=== PATIENT | male | born 1950 | race Caucasian/White ===

== ENCOUNTER 2020-09-25 06:36 | Outpatient (REF) | payer MEDICARE, MEDICAID, SELFPAY ==
[2020-09-25 08:16] LABS: Alanine Aminotransferase 23 U/L (0-40); Albumin Level 4.3 g/dL (3.5-5.0); Alkaline Phosphatase 100 U/L (39-117); Anion Gap 14 (12-20); Aspartate Amino Transferase 20 U/L (5-37); Bilirubin Direct 0.4 mg/dL (0.0-0.5); Blood Urea Nitrogen 13 mg/dL (9-16); Calcium 9.2 mg/dL (8.4-10.2); Carbon Dioxide 24 mmol/L (22-29); Chloride 103 mmol/L (96-108); Cholesterol 173 mg/dL; Estimated Glomerular Filt Rate > 60; Glucose Fasting 95 mg/dL (60-99); HDL Cholesterol 48 mg/dL; LDL Cholesterol Calculated 100 mg/dl; Potassium 4.3 mmol/l (3.3-5.1); Sodium 137 mmol/L (135-145); Total Protein 6.9 g/dL (6.5-8.0); Triglycerides 126 mg/dL
== END 2020-09-25 06:37 | disposition home or self-care (01) ==
LOC: HO.LAB 06:36
PROVIDERS: Visit Provider Student in an Organized Health Care Education/Training Program
DX: E78.01 Familial hypercholesterolemia (principal)
CPT/HCPCS: 80048; 80061; 80076

== ENCOUNTER 2021-07-24 21:21 | Emergency (ER) | payer MEDICARE, MEDICAID, SELFPAY ==
[2021-07-24 22:17] VITALS: BP 134/67; PULSE 65; RESP 18; TEMP 36.7; O2SAT 94; BMI 32.1
[2021-07-24 22:42] VITALS: BP 155/65; PULSE 64; RESP 16; TEMP 36.5; O2SAT 97
--- NOTE | 2021-07-24 23:11 | ED.LOWEXIN ---
HPI - Extremity Injury (Lower) General Chief Complaint: Extremity Injury, Lower Stated Complaint: toe lac Time Seen by Provider: 07/24/21 23:06 Source: patient Mode of arrival: ambulatory History of Present Illness HPI Narrative: 71-year-old male who presents after clipping his toenails and accidentally catching the skin tip of right 3rd toe and states he had some difficulty stopping the bleeding. He denies any blood thinner use and has unknown tetanus vaccine. Related Data Allergies Allergy/AdvReac Type Severity Reaction Status Date / Time No Known Allergies Allergy Unverified 07/27/20 15:07 Review of Systems Review of Systems: Pertinent positives and negatives as stated in HPI 10 point review of systems is otherwise negative. PMFSH Past Medical History Source: nursing notes reviewed Medical History Depression High cholesterol Hypertension No known health problems Social History Social History Advance Directives: No Physical Exam Vital Signs: Vital Signs: Last Vital Signs Temp 97.7 F 07/24/21 22:42 Pulse 64 07/24/21 22:42 Resp 16 07/24/21 22:42 BP 155/65 H 07/24/21 22:42 Pulse Ox 97 07/24/21 22:42 Body Mass Index 32.1 VITAL SIGNS: Reviewed. GENERAL: Well developed, well nourished, in no acute distress. HEAD: Normocephalic/atraumatic EYES: PERRLA, EOMI LUNGS: Normal breath sounds. No adventitious sounds or accessory muscle use. SpO2<97> CARDIOVASCULAR: Regular rate and rhythm without noted murmurs ABDOMEN: Soft, non-tender, non-distended with bowel sounds. RIGHT 3RD TOE: Small avulsed area at the tip that is currently hemostatic NEUROLOGIC: Alert and oriented x 4. Course Course Course Narrative: 71-year-old male with history and clinical presentation consistent with toe clipper related avulsion laceration to the tip of the right 3rd toe. It is currently hemostatic, patient will receive Tdap, and will apply bacitracin and Band-Aid. Discharge Plan Discharge Clinical Impression: Laceration of toe Patient Disposition: Home, Self-Care Instructions: Laceration (ED), Laceration Without Closure (ED) Additional Instructions: 1. May cleanse her toe with soap and water and gently blot dry. May apply small amount of antibiotic ointment with Band-Aid. 2. If you toe should start to bleed simply apply direct pressure and elevate your foot. 3. Follow-up with your primary care provider for re-evaluation in the next 2-3 days. Return to the ER for acute worsening of symptoms. Referrals: Rocio Marie MD [Primary Care Provider] - 2 days
[2021-07-24] MEDS: Diphth,Pertus(ACell),Tet Adult 0.5 ML SYRINGE IM (23:52)
== END 2021-07-25 00:34 | disposition home or self-care (01) ==
LOC: HO.ED 23:18
PROVIDERS: Emergency Provider Student in an Organized Health Care Education/Training Program; PCP Student in an Organized Health Care Education/Training Program
DX: S91.114A Laceration without foreign body of right lesser toe(s) without damage to nail, initial encounter (principal); M79.672 Pain in left foot; W26.9XXA Contact with unspecified sharp object(s), initial encounter; Y93.9 Activity, unspecified; Y92.9 Unspecified place or not applicable; Y99.9 Unspecified external cause status
CPT/HCPCS: 90471; 90715; 99284

== ENCOUNTER 2022-03-07 08:18 | Outpatient (REF) | payer MEDICARE, MEDICAID, SELFPAY ==
--- NOTE | ~2022-03-07 | US_ITS ---
EXAMINATION: US RETROPERITONEAL LIMITED (RENAL ONLY) CLINICAL INFORMATION: Chronic kidney disease. COMPARISON: None TECHNIQUE: Real-time imaging of the kidneys. FINDINGS: RIGHT KIDNEY: 11.0 x 4.2 x 5.8 cm (SAG x AP x TRV). The kidney is normal in size, contour, and echogenicity. Renal cortical thickness is normal. No calculi or focal parenchymal lesions. No hydronephrosis. LEFT KIDNEY: 9.9 x 4.6 x 5.4 cm (SAG x AP x TRV). The kidney is normal in size, contour, and echogenicity. Renal cortical thickness is normal. No calculi or focal parenchymal lesions. No hydronephrosis. US/US renal BI IMPRESSION: Unremarkable renal ultrasound.
[2022-03-07 11:39] LABS: Hematocrit 43.5 % (42.0-52.0); Hemoglobin 14.5 g/dl (14.0-18.0); Mean Corpuscular HGB Conc 33.3 g/dl (31.0-36.0); Mean Corpuscular Hemoglobin 28.7 pg (27.0-33.0); Platelet Count 267 X10*3/uL (160-400); Red Blood Count 5.06 X10*6/uL (4.60-5.80); Red Cell Distribution Width 13.6 % (11.0-16.0); White Blood Count 6.6 X10*3/uL (4.8-10.8)
[2022-03-07 11:48] LABS: Albumin Level 4.3 g/dL (3.5-5.0); Anion Gap 13 (12-20); Blood Urea Nitrogen 12 mg/dL (9-16); Calcium 10.1 mg/dL (8.4-10.2); Carbon Dioxide 26 mmol/L (22-29); Chloride 103 mmol/L (96-108); Estimated Glomerular Filt Rate > 60; Magnesium 2.1 mg/dL (1.6-2.6); Potassium 4.7 mmol/L (3.3-5.1); Sodium 137 mmol/L (135-145)
[2022-03-07 12:04] LABS: Vitamin D 25-OH Total 8.5 ng/mL (>30)
[2022-03-07 12:30] LABS: Appearance Urine CLEAR; Color Urine YELLOW; Glucose Urine UA NEG (NEG); Leukocyte Esterase Urine NEG (NEG); Nitrite Urine NEG (NEG); PH 7.5 (5.0-8.0); Specific Gravity - Urine 1.015 (1.005-1.025); Urine Blood NEG (NEG); Urine Ketones NEG (NEG); Urine Protein NEG (NEG-TRACE)
[2022-03-07 12:31] LABS: HBS Num1 0.59 mIU/mL (0-7.99); HBc Num1 0.09 S/CO (0.00-0.79); HBsAGNum1 0.21 S/CO (0.00-0.99); Hepatitis B Core Antibody Nonreactive (Nonreactive); Hepatitis B Surface Antigen Negative (Negative); ~Hepatitis B Surface Antibody NONREACTIVE (Nonreactive); ~Hepatitis C Antibody Nonreactive (Nonreactive)
[2022-03-07 12:40] LABS: Creatinine Urine 121.28 mg/dL; Microalbumin Urine < 5.0 mg/L; Total Protein Urine Random < 7 mg/dL (<12)
[2022-03-08 13:02] LABS: PTHI 42 pg/mL (16-77)
[2022-03-08 17:46] LABS: Complement C3 141 mg/dL (82-185)
[2022-03-09 14:42] LABS: Anti Nuclear Antibody Screen NEGATIVE (NEGATIVE)
[2022-03-11 22:13] LABS: Kappa Light Chain, Free Serum 21.4 mg/L (3.3-19.4); Kappa/Lambda Lt Ch Free Ratio 1.18 (0.26-1.65); Lambda Light Chain, Free Serum 18.2 mg/L (5.7-26.3)
[2022-03-12 11:51] LABS: Prot Elec - Albumin 4.2 g/dL (3.8-4.8); Prot Elec - Alpha1 0.4 g/dL (0.2-0.3); Prot Elec - Beta 1 0.5 g/dL (0.4-0.6); Prot Elec - Beta 2 0.4 g/dL (0.2-0.5); Prot Elec - Gamma 0.8 g/dL (0.8-1.7); Prot Elec - Total Protein 7.2 g/dL (6.1-8.1)
== END 2022-03-07 08:19 | disposition home or self-care (01) ==
LOC: HO.HMGCX 08:18
PROVIDERS: Absent Provider Internal Medicine Nephrology; Visit Provider Internal Medicine Nephrology
DX: I12.9 Hypertensive chronic kidney disease with stage 1 through stage 4 chronic kidney disease, or unspecified chronic kidney disease (principal); N18.31 Chronic kidney disease, stage 3a; N25.0 Renal osteodystrophy
CPT/HCPCS: 36415; 76775; 80051; 81003; 82040; 82043; 82306; 82310; 82565; 83521; 83735; 83970; 84100; 84156; 84165; 84520; 85027; 86038; 86039; 86160; 86704; 86706; 86803; 87086; 87340

== ENCOUNTER 2022-06-26 06:10 | Outpatient (REF) | payer MEDICARE, MEDICAID, SELFPAY ==
[2022-06-26 12:14] LABS: Vitamin D 25-OH Total 18.9 ng/mL (>30)
[2022-06-26 12:23] LABS: Alanine Aminotransferase 18 U/L (0-40); Albumin Level 4.2 g/dL (3.5-5.0); Alkaline Phosphatase 108 U/L (39-117); Anion Gap 14 (12-20); Aspartate Amino Transferase 16 U/L (5-37); Bilirubin Direct 0.4 mg/dL (0.0-0.5); Bilirubin Total 0.8 mg/dL (0.0-1.0); Blood Urea Nitrogen 10 mg/dL (9-16); Calcium 9.5 mg/dL (8.4-10.2); Carbon Dioxide 23 mmol/L (22-29); Chloride 105 mmol/L (96-108); Cholesterol 165 mg/dL; Estimated Glomerular Filt Rate > 60; Glucose Random 100 mg/dL (60-115); HDL Cholesterol 49 mg/dL; LDL Cholesterol Calculated 95 mg/dl; Potassium 4.3 mmol/L (3.3-5.1); Sodium 138 mmol/L (135-145); Triglycerides 108 mg/dL
== END 2022-06-26 06:11 | disposition home or self-care (01) ==
LOC: HO.HMGCLDS 06:10
PROVIDERS: PCP Student in an Organized Health Care Education/Training Program; Visit Provider Student in an Organized Health Care Education/Training Program
DX: E78.01 Familial hypercholesterolemia (principal); I10 Essential (primary) hypertension
CPT/HCPCS: 36415; 80048; 80061; 80076; 82306

== ENCOUNTER 2023-04-08 06:06 | Outpatient (REF) | payer MEDICARE, MEDICAID, SELFPAY ==
[2023-04-08 11:17] LABS: Appearance Urine Clear; Color Urine Yellow; Glucose Urine UA Negative (Negative); Leukocyte Esterase Urine Negative (Negative); Nitrite Urine Negative (Negative); Urine Blood Negative (Negative); Urine Ketones Negative (Negative); Urine Protein Negative (Neg-Trace)
[2023-04-08 11:21] LABS: Bacteria Urine None Seen (None Seen); Hyaline Casts Urine 0-2 /LPF (0-2); RBC Urine 0-2 /HPF (0-2); Squamous Epithelial Cell Urine 0-2 /HPF (0-2); WBC Urine 0-5 /HPF (0-5)
[2023-04-08 12:01] LABS: Creatinine Urine 93.08 mg/dL; Microalbumin Urine < 5.0 mg/L; Total Protein Urine Random < 7 mg/dL (<12)
[2023-04-08 12:08] LABS: Anion Gap 12 (12-20); Blood Urea Nitrogen 10 mg/dL (9-16); Carbon Dioxide 26 mmol/L (22-29); Chloride 104 mmol/L (96-108); Estimated Glomerular Filt Rate 55; Potassium 4.4 mmol/L (3.3-5.1); Sodium 138 mmol/L (135-145)
== END 2023-04-08 06:07 | disposition home or self-care (01) ==
LOC: HO.HMGCLDS 06:06
PROVIDERS: PCP Student in an Organized Health Care Education/Training Program; Visit Provider Internal Medicine Nephrology
DX: I12.9 Hypertensive chronic kidney disease with stage 1 through stage 4 chronic kidney disease, or unspecified chronic kidney disease (principal); N18.9 Chronic kidney disease, unspecified
CPT/HCPCS: 36415; 80051; 81001; 82043; 82310; 82565; 84156; 84520

== ENCOUNTER 2024-04-21 06:09 | Outpatient (REF) | payer MEDICARE, MEDICAID, SELFPAY ==
[2024-04-21 10:17] LABS: Appearance Urine Clear; Color Urine Yellow; Glucose Urine UA Negative (Negative); Leukocyte Esterase Urine Negative (Negative); Nitrite Urine Negative (Negative); PH 7.5 (5.0-9.0); Urine Blood Negative (Negative); Urine Ketones Negative (Negative); Urine Protein Negative (Neg-Trace)
[2024-04-21 10:24] LABS: MANUAL DIFF FLAG NO
[2024-04-21 10:41] LABS: Basophils Absolute Auto 0.1 X10*3/uL (0.0-0.2); Basophils Percent Auto 1.6 % (0-2); Eosinophils Absolute Auto 0.3 X10*3/uL (0.0-0.4); Eosinophils Percent Auto 4.2 % (0-4); Hematocrit 42.6 % (42.0-52.0); Hemoglobin 14.4 g/dl (14.0-18.0); Imm Gran Abs Auto 0.02 X10*3/uL (0.00-0.03); Imm Gran Pct Auto 0.3 % (0.0-0.4); Lymphocytes Absolute Auto 1.6 X10*3/uL (1.2-4.9); Lymphocytes Percent Auto 23.9 % (20-40); Mean Corpuscular HGB Conc 33.8 g/dl (31.0-36.0); Mean Corpuscular Hemoglobin 29.7 pg (27.0-33.0); Mean Corpuscular Volume 87.8 fL (80.0-98.0); Mean Platelet Volume 9.3 fL (9.4-12.4); Monocytes Absolute Auto 0.6 X10*3/uL (0.1-1.2); Monocytes Percent Auto 8.5 % (2-11); Neutrophils Absolute Auto 4.1 x10*3/uL (2.0-8.3); Neutrophils Percent Auto 61.5 % (45-73); Platelet Count 267 X10*3/uL (160-400); Red Blood Count 4.85 X10*6/uL (4.60-5.80); Red Cell Distribution Width 13.7 % (11.0-16.0); White Blood Count 6.7 X10*3/uL (4.8-10.8)
[2024-04-21 10:59] LABS: Albumin Level 4.3 g/dL (3.5-5.0); Anion Gap 10 (12-20); Blood Urea Nitrogen 13 mg/dL (9-16); Calcium 9.9 mg/dL (8.4-10.2); Carbon Dioxide 26 mmol/L (22-29); Chloride 105 mmol/L (96-108); Estimated Glomerular Filt Rate > 60; Magnesium 2.1 mg/dL (1.6-2.6); Parathyroid Hormone Intact 46.2 pg/mL (8.7-77.1); Potassium 4.2 mmol/L (3.3-5.1); Sodium 137 mmol/L (135-145)
[2024-04-21 11:03] LABS: Creatinine Urine 70.44 mg/dL; Microalbumin Urine < 5.0 mg/L; Total Protein Urine Random < 7 mg/dL (<12)
[2024-04-21 11:22] LABS: Vitamin D 25-OH Total 23.5 ng/mL (>30)
== END 2024-04-21 06:10 | disposition home or self-care (01) ==
LOC: HO.HMGCLDS 06:09
PROVIDERS: PCP Student in an Organized Health Care Education/Training Program; Visit Provider Internal Medicine Nephrology
DX: N25.0 Renal osteodystrophy (principal); I12.9 Hypertensive chronic kidney disease with stage 1 through stage 4 chronic kidney disease, or unspecified chronic kidney disease; N18.31 Chronic kidney disease, stage 3a
CPT/HCPCS: 36415; 80051; 81003; 82040; 82043; 82306; 82310; 82565; 82570; 83735; 83970; 84100; 84156; 84520; 85025; 87086

== ENCOUNTER 2024-06-14 06:12 | Outpatient (REF) | payer MEDICARE, MEDICAID, SELFPAY ==
[2024-06-14 10:41] LABS: Alanine Aminotransferase 17 U/L (0-40); Albumin Level 4.2 g/dL (3.5-5.0); Alkaline Phosphatase 88 U/L (39-117); Anion Gap 12 (12-20); Aspartate Amino Transferase 17 U/L (5-37); Bilirubin Direct 0.3 mg/dL (0.0-0.5); Bilirubin Total 0.9 mg/dL (0.0-1.0); Blood Urea Nitrogen 13 mg/dL (9-16); Carbon Dioxide 24 mmol/L (22-29); Chloride 106 mmol/L (96-108); Cholesterol 162 mg/dL (<200); Estimated Glomerular Filt Rate > 60; Glucose Random 98 mg/dL (60-115); HDL Cholesterol 49 mg/dL (>40); LDL Cholesterol Calculated 88 mg/dL (<100); Potassium 4.3 mmol/L (3.3-5.1); Sodium 138 mmol/L (135-145); Total Protein 7.2 g/dL (6.5-8.0); Triglycerides 129 mg/dL (<150)
== END 2024-06-14 06:13 | disposition home or self-care (01) ==
LOC: HO.HMGCLDS 06:12
PROVIDERS: PCP Student in an Organized Health Care Education/Training Program; Visit Provider Student in an Organized Health Care Education/Training Program
DX: E78.2 Mixed hyperlipidemia (principal); I10 Essential (primary) hypertension
CPT/HCPCS: 36415; 80048; 80061; 80076

== ENCOUNTER 2024-07-29 06:36 | Emergency (ER) | payer MEDICARE, MEDICAID, SELFPAY ==
[2024-07-29 06:48] VITALS: BP 122/59; PULSE 72; RESP 19; TEMP 36.9; O2SAT 97
[2024-07-29 06:56] VITALS: BP 140/80; PULSE 70; O2SAT 98; BMI 33.0
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
[2024-07-29 07:52] LABS: MANUAL DIFF FLAG NO
[2024-07-29 07:55] LABS: Appearance Urine Clear; Color Urine Yellow; Glucose Urine UA Negative (Negative); Leukocyte Esterase Urine Negative (Negative); Nitrite Urine Negative (Negative); Urine Blood Negative (Negative); Urine Ketones Negative (Negative); Urine Protein Negative (Neg-Trace)
[2024-07-29 07:56] LABS: Basophils Absolute Auto 0.1 X10*3/uL (0.0-0.2); Basophils Percent Auto 1.3 % (0-2); Eosinophils Absolute Auto 0.1 X10*3/uL (0.0-0.4); Hematocrit 42.1 % (42.0-52.0); Hemoglobin 14.4 g/dl (14.0-18.0); Imm Gran Abs Auto 0.03 X10*3/uL (0.00-0.03); Imm Gran Pct Auto 0.4 % (0.0-0.4); Mean Corpuscular HGB Conc 34.2 g/dl (31.0-36.0); Mean Corpuscular Hemoglobin 30.3 pg (27.0-33.0); Mean Corpuscular Volume 88.4 fL (80.0-98.0); Mean Platelet Volume 8.6 fL (9.4-12.4); Monocytes Absolute Auto 0.4 X10*3/uL (0.1-1.2); Monocytes Percent Auto 6.3 % (2-11); Neutrophils Absolute Auto 5.2 x10*3/uL (2.0-8.3); Platelet Count 296 X10*3/uL (160-400); Red Blood Count 4.76 X10*6/uL (4.60-5.80); Red Cell Distribution Width 13.5 % (11.0-16.0); White Blood Count 6.8 X10*3/uL (4.8-10.8)
[2024-07-29 08:00] VITALS: BP 119/60; PULSE 70; RESP 16; TEMP 36.5; O2SAT 98
[2024-07-29 08:04] LABS: Amphetamine Screen Urine Not Detected (Not Detect); Barbiturates, Urine Not Detected (Not Detect); Benzodiazepines Screen Urine Not Detected (Not Detect); Buprenorphine Scr Not Detected (Not Detect); Cannabinoid Screen Urine Not Detected (Not Detect); Cocaine Screen Urine Not Detected (Not Detect); Fentanyl, urine Not Detected (Not Detect); Methadone Screen, Urine Not Detected (Not Detect); Opiate Screen Urine Not Detected (Not Detect); Oxycodone Screen Urine Not Detected (Not Detect); Phencyclidine Screen Urine Not Detected (Not Detect)
[2024-07-29 08:18] LABS: Alanine Aminotransferase 19 U/L (0-40); Albumin Level 4.3 g/dL (3.5-5.0); Alkaline Phosphatase 99 U/L (39-117); Anion Gap 12 (12-20); Aspartate Amino Transferase 17 U/L (5-37); Bilirubin Direct 0.3 mg/dL (0.0-0.5); Blood Urea Nitrogen 9 mg/dL (9-16); Calcium 9.6 mg/dL (8.4-10.2); Carbon Dioxide 27 mmol/L (22-29); Chloride 107 mmol/L (96-108); Creatinine Clr Calc Pharmacy 81.5; Estimated Glomerular Filt Rate > 60; Ethanol < 10 mg/dL; Glucose Random 105 mg/dL (60-115); Magnesium 2.1 mg/dL (1.6-2.6); Potassium 3.9 mmol/L (3.3-5.1); Sodium 142 mmol/L (135-145); Total Protein 7.2 g/dL (6.5-8.0)
[2024-07-29 08:28] LABS: TSH reflex Free T4 1.36 uIU/mL (0.32-4.0)
--- NOTE | 2024-07-29 08:42 | PC.NURSE ---
Has been resting queitly. No current panick attack but describes episodes of such at home. Has life stress and a trigger recently. Is on clonazepam but wants additional medication. Awaits Care Team.
[2024-07-29 11:16] VITALS: BP 119/60; PULSE 70; RESP 16; TEMP 36.5; O2SAT 98
== END 2024-07-29 11:17 | disposition home or self-care (01) ==
PROVIDERS: Emergency Provider Emergency Medicine; PCP Student in an Organized Health Care Education/Training Program
DX: F41.9 Anxiety disorder, unspecified (principal); I10 Essential (primary) hypertension; E78.5 Hyperlipidemia, unspecified; Z79.899 Other long term (current) drug therapy
CPT/HCPCS: 36415; 80048; 80076; 80307; 81003; 83735; 84443; 85025; 99284

== ENCOUNTER 2025-04-18 06:09 | Outpatient (REF) | payer MEDICARE, MEDICAID, SELFPAY ==
[2025-04-18 10:48] LABS: Alanine Aminotransferase 14 U/L (0-40); Albumin Level 4.4 g/dL (3.5-5.0); Alkaline Phosphatase 110 U/L (39-117); Anion Gap 10 (12-20); Aspartate Amino Transferase 23 U/L (5-37); Bilirubin Direct 0.3 mg/dL (0.0-0.5); Blood Urea Nitrogen 13 mg/dL (9-16); Calcium 9.3 mg/dL (8.4-10.2); Carbon Dioxide 27 mmol/L (22-29); Chloride 105 mmol/L (96-108); Cholesterol 166 mg/dL (<200); Estimated Glomerular Filt Rate 60; Glucose Random 109 mg/dL (60-115); HDL Cholesterol 51 mg/dL (>40); LDL Cholesterol Calculated 87 mg/dL (<100); Sodium 138 mmol/L (135-145); Total Protein 7.1 g/dL (6.5-8.0); Triglycerides 141 mg/dL (<150)
== END 2025-04-18 06:10 | disposition home or self-care (01) ==
LOC: HO.HMGCLDS 06:09
PROVIDERS: PCP Student in an Organized Health Care Education/Training Program; Visit Provider Student in an Organized Health Care Education/Training Program
DX: I10 Essential (primary) hypertension (principal)
CPT/HCPCS: 36415; 80048; 80061; 80076

== ENCOUNTER 2025-05-19 06:13 | Outpatient (REF) | payer MEDICARE, MEDICAID, SELFPAY ==
[2025-05-19 10:49] LABS: Anion Gap 12 (12-20); Blood Urea Nitrogen 15 mg/dL (9-16); Calcium 9.4 mg/dL (8.4-10.2); Carbon Dioxide 24 mmol/L (22-29); Chloride 104 mmol/L (96-108); Estimated Glomerular Filt Rate 55; Potassium 4.6 mmol/L (3.3-5.1); Sodium 135 mmol/L (135-145)
[2025-05-19 11:43] LABS: Total Protein Urine Random < 7 mg/dL (<12)
[2025-05-19 11:53] LABS: Appearance Urine Clear; Glucose Urine UA Negative (Negative); PH 7.5 (5.0-9.0); Specific Gravity - Urine 1.015 (1.005-1.025)
== END 2025-05-19 06:14 | disposition home or self-care (01) ==
LOC: HO.HMGCLDS 06:13
PROVIDERS: PCP Student in an Organized Health Care Education/Training Program; Visit Provider Internal Medicine Nephrology
DX: I12.9 Hypertensive chronic kidney disease with stage 1 through stage 4 chronic kidney disease, or unspecified chronic kidney disease (principal); N18.2 Chronic kidney disease, stage 2 (mild)
CPT/HCPCS: 36415; 80051; 81001; 82043; 82310; 82565; 82570; 84156; 84520

== ENCOUNTER 2025-08-01 23:11 | Emergency (ER) | payer MEDICARE, MEDICAID, SELFPAY ==
[2025-08-01 23:14] VITALS: BP 129/56; PULSE 75; RESP 16; TEMP 36.5; O2SAT 95; BMI 34.4
--- NOTE | 2025-08-02 01:31 | ED_ITS ---
HPI - General Adult General Chief complaint: Skin/Abscess/Foreign Body Stated complaint: back, bilateral leg and arm rash Time Seen by Provider: 08/02/25 01:05 Source: patient, RN notes reviewed and old records reviewed Mode of arrival: ambulatory Limitations: no limitations History of Present Illness ED Provider: Isaiah HPI narrative: 75-year-old male presents for evaluation of a rash. The rash is worse on his bilateral upper thighs but he also has the rash on his arms and back. The rash is very itchy, not painful. He reports that he woke up with a about 1 week ago Denies any new soaps, lotions, detergents medications. Denies any fevers or chills No other complaints or concerns at this time Related Data Previous Rx's ?Medication ?Instructions ?Recorded mirtazapine 15 mg tablet (Remeron) 15 mg PO BEDTIME #7 tabs 07/29/24 hydrocortisone 2.5 % topical cream 1 appl topical BID #28 grams 08/02/25 prednisone 20 mg tablet 40 mg (2 x 20 mg) PO DAILY # 10 tabs 08/02/25 Allergies Allergy/AdvReac Type Severity Reaction Status Date / Time No Known Allergies Allergy Verified 08/01/25 23:16 Review of Systems 2 Constitutional: Constitutional: Denies body ache(s), Denies chills and Denies fever(s) Cardiovascular: Cardiovascular: Denies chest pain and Denies dyspnea on exertion Respiratory: Respiratory: Denies cough and Denies dyspnea on exertion Gastrointestinal: Gastrointestinal: Denies abdominal pain, Denies nausea and Denies vomiting Musculoskeletal: Musculoskeletal: Denies back pain Integumentary/Breasts: Skin/Breast: Reports pruritus and Reports rash PMFSH Past Medical History Medical History Hypertension High cholesterol Depression No known health problems Social History Social History (Updated 07/29/24 @ 07:31 by Mari Hall DO) Patient Tobacco Use Status: Never used Tobacco Physical Exam ED Vital Signs: Vital Signs - 24 hr 08/01/25 23:14 Temperature 97.7 F Pulse Rate 75 Respiratory Rate 16 Blood Pressure 129/56 L Pulse Oximetry 95 Oxygen Delivery Method Room Air BMI result Body Mass Index 34.4 Const General: healthy appearing, comfortable, no acute distress, alert and awake Nutritional Appearance: well nourished Orientation/consciousness: [facility]: Yes normocephalic and Yes atraumatic Throat: Yes posterior oropharynx normal Eyes Eyelids: Yes eyelids normal Conjunctivae: conjunctivae normal Sclerae: sclerae normal Corneas: corneas normal Pupils: Equal, round and reactive pupils present EOM: EOMs intact bilaterally Neck Neck: Yes full ROM Resp Effort & Inspection: normal respiratory effort, able to speak in complete sentences, no audible wheezes and not labored Auscultation: clear to auscultation bilaterally Skin Other: Scattered macular rash to the upper thighs, torso and arms. No involvement of the face. No oral perioral or retropharyngeal edema. Several of the lesions appear in a nummular pattern General skin exam: elasticity normal Neuro General: patient oriented x3 Cranial nerves: Yes Equal, round and reactive pupils present and Yes Bilaterally intact EOM present Cognition (Neuro): normal cognition Extrem Other: Moving all extremities well without any obvious deformities Medical Decision Making Medical Decision Making MDM Narrative: 75-year-old male presents for evaluation of an itchy rash to his arms, legs and torso. This is most consistent with an inflammatory condition such as eczema. We will give him prednisone and hydrocortisone in his encouraged to use moisturizers. No evidence of infectious or allergic reaction. Differential Diagnosis Differential Diagnoses: The differential diagnosis associated with the presentation includes Eczema Dermatitis Urticaria Contact dermatitis Discharge Plan Discharge Clinical Impression: Acute dermatitis Patient Disposition: Home, Self-Care Instructions: Dermatitis (ED) Additional Instructions: You may apply hydrocortisone twice daily for 1 week pain Take prednisone 40 mg daily for the next 5 days. You may also use [id number] allergy medication to help with the itching such as Claritin or Zyrtec Follow up with your primary doctor, return for new or worsening symptoms Prescriptions: New prednisone 20 mg tablet 40 mg PO DAILY Qty: 10 0RF hydrocortisone 2.5 % cream 1 appl topical BID Qty: 28 0RF No Action mirtazapine [Remeron] 15 mg tablet 15 mg PO BEDTIME Qty: 7 0RF Print Language: Armenian
--- OUTSIDE RECORDS SUMMARY | 2025-08-02 01:41 | XMS_ITS | Encounter Summary ---
Author Organization [facility] [employer] Address [address] [place] [address] Care Team Providers Care Product Development Assistant Name Role Phone Rocio Marie MD Primary Care Provider [phone] Encounter Details Date Type Department Care Team (Latest Contact Info) Description 04/15/2019 Abstract [facility] CONVERSIONS Dental, Provider, DDS Social History Tobacco Use Types Packs/Day Years Used Date Smoking Tobacco: Never Assessed Sex and Gender Information Value Date Recorded Sex Assigned at Male 09/09/2022 10:17 AM EDT Legal Sex Male 10:17 AM EDT Gender Identity Male 09/09/2022 10:17 AM EDT Sexual Orientation Straight 09/09/2022 10 :17 AM EDT documented as of this encounter Plan of Treatment Upcoming Encounters Date Type Department Care Team (Late st Contact Info) Description 08/30/2025 9:15 AM EDT Office Visit [facility] [address] [place] [address] Siria Biswas MD [address] [place] [address] documented as of this encounter Visit Diagnoses Not on filedocumented in this encounter Care Teams Product Development Assistant Relationship Specialty Start Date End Date Rocio Marie MD [address] [place] [id number] PCP - General Family Medicine 10/23/12 documented as of this encounter
--- OUTSIDE RECORDS SUMMARY | 2025-08-02 01:41 | XMS_ITS | Encounter Summary ---
Author Organization [employer] Address [address] [facility] [address] [place] [address] Care Team Providers Care Choker Setter Name Role Phone Rocio Marie MD Primary Care Provider [phone] Reason for Visit * Reason Comments Med Change Request Encounter Details Date Type Department Care Team ([facility] Contact Info) Description 03/28/2025 Refill [facility] [address] [facility] [place], [place] [phone] Rocio Marie MD [address] [place], [place] [phone] Social History Tobacco Use Types Packs/Day Years Used Date Smoking Tobacco: Never Smokeless Tobacco: Never Alcohol Use Standard Drinks/Week Comments Never 0 (1 standard drink = 0.6 oz pur e alcohol) Depression Answer Date Recorded Patient Health Questionnaire-9 Score 0 06/11/2024 Patient Health Questionnaire-9 Score 0 06/11/2024 Last PHQ-9: Questionnaire Data Not on file 0 06/11/2024 Housing Stability Answer Date Recorded What is your housing situation today? I have zahira bermudez 06/11/[address] you li ve. Do you have problems with any of the following? None of the above 06/11/2024 Food Insecurity Answer Date Recorded Within the past 12 months, y ou worried that your food would run out before you got money to buy more: Never True 06/11/2024 Within the past 12 months,th e food you bought just didn't last and you didn't have enough money to get more: Never True 12/2023 Transportation Answer Date Recorded In the past 12 months, has l ack of transportation kept you from medical appts, meetings, work or from getting things needed for daily living? No 06/11/2024 Utilities Answer Date Recorded In the past 12 months, has t he electric, gas, oil or water company threatened to shut off services in your home? No 06/11/2024 Depression Answer Date Recorded Patient Health Questionnaire-2 Score 0 06/11/2024 Internet Access Answer Date Recorded Internet Access Q1 No 03/30/2025 Internet Access Q2 I cannot afford it 03/30/2025 Sex and Gender Information Value Date Recorded Sex Assigned at Male 09/09/2022 10:17 AM EDT Legal Sex Male 10:17 AM EDT Gender Identity Male 09/09/2022 10:17 AM EDT Sexual Orientation Straight 09/09/2022 10 :17 AM EDT documented as of this encounter Plan of Treatment Upcoming Encounters Date Type Department Care Team (Late st Contact Info) Description 08/30/2025 9:15 AM EDT Office Visit [facility] [address] [place] [address] Siria Biswas MD [address] [place] [address] documented as of this encounter Visit Diagnoses Not on filedocumented in this encounter Additional Health Concerns Assessment Noted Time PHQ-9 Depression Total Score: 0 06/11/20 24 10:49 AM EDT documented as of this encounter Care Teams Choker Setter Relationship Specialty Start Date End Date Rocio Marie MD [address] [place] [id number] PCP - General Family Medicine 10/23/12 documented as of this encounter
--- OUTSIDE RECORDS SUMMARY | 2025-08-02 01:41 | XMS_ITS | Encounter Summary ---
Author Organization [employer] Address [address] [place] [address] Care Team Providers Care Audio/Video Technician Name Role Phone Rocio Marie MD Primary Care Provider [phone] Reason for Visit * Reason Comments Med Change Request Encounter Details Date Type Department Care Team ([facility] Contact Info) Description 05/19/2025 Refill [facility] [address] [place], [place] [phone] Lisy Balderrama MD [address] [place], [place] [phone] Social History Tobacco Use Types Packs/Day Years Used Date Smoking Tobacco: Never Smokeless Tobacco: Never Alcohol Use Standard Drinks/Week Comments Never 0 (1 standard drink = 0.6 oz pur e alcohol) Depression Answer Date Recorded Patient Health Questionnaire-9 Score 2 04/12/2025 Patient Health Questionnaire-9 Score 2 04/12/2025 Last PHQ-9: Questionnaire Data Not on file 0 04/12/2025 Housing Stability Answer Date Recorded What is [...] Answer Date Recorded Patient Health Questionnaire-2 Score 2 04/12/2025 Internet Access Answer Date Recorded Internet Access Q1 Yes 04/12/2025 Internet Access Q2 I cannot afford it 04/12/2025 Sex and Gender Information Value Date Recorded Sex Assigned at Male 09/09/2022 10:17 AM EDT Legal Sex Male 10:17 AM EDT Gender Identity Male 09/09/2022 10:17 AM EDT Sexual Orientation Straight 09/09/2022 10 :17 AM EDT documented as of this encounter Plan of Treatment Upcoming Encounters Date Type Department Care Team (Late st Contact Info) Description 08/30/2025 9:15 AM EDT Office Visit [facility] MED & PEDS [address] [place] [address] Siria Biswas MD [address] [place] [address] documented as of this encounter Visit Diagnoses Not on filedocumented in this encounter Additional Health Concerns Assessment Noted Time PHQ-9 Depression Total Score: 2 04/12/20 25 9:00 AM EDT documented as of this encounter Care Teams Audio/Video Technician Relationship Specialty Start Date End Date Rocio Marie MD [address] [place] [id number] PCP - General Family Medicine 10/23/12 documented as of this encounter
--- OUTSIDE RECORDS SUMMARY | 2025-08-02 01:41 | XMS_ITS | Clinical Summary ---
Author Organization [employer] Address [address] [facility] 7t [place] [address] Care Team Providers Care Scrub Woman Name Role Phone Rocio Marie MD Primary Care Provider [phone] Allergies No known active allergies Medications cholecalciferol (Vitamin D-3) 50 MCG (1999 UT) capsule Take 1 capsule by mouth every 12 (twelve) hours. 2 Active hydroCHLOROthiazid e (HYDRODiuril) 25 MG tablet take 1 Tablet by Oral route once daily 1 Active loperamide (Imodium A-D) 2 MG tablet Take 2 tablets by mouth. 0 Active naloxone (Narcan) 4 mg/0.1 mL nasal spray Administer 0.1 mL into affected nostril(s). 9 Active omeprazole (PriLOSEC) [address] capsule Take 1 capsule by mouth at bed time. 8 Active zoster vaccine, live, (Zostavax) 69839 UNT/0.65ML injection give IM x1 5 Active Misc. Devices (Pulse Oximeter For Finger) miscIndications:CO VID-19 To use every 4 hours. Call the office if O2 Sat < 90% 1 each 4 Active FLUoxetine (PROzac) 20 MG capsuleIndications :Anxiety TAKE 2 CAPSULES BY MOUTH EVERY DAY 180 capsule 1 4 Active gabapentin (Neurontin) 100 MG capsuleIndications :Pain Take 1 capsule (100 mg) by mouth if needed each day (daily prn). 90 capsule 4 Active hydrOXYzine HCl (Atarax) 25 MG tabletIndications: Anxiety TAKE 2 TABLETS BY MOUTH AT BEDTIME 180 tablet 1 4 Active clonazePAM (KlonoPIN) 0.5 MG tabletIndications: Anxiety TAKE 1 TABLET BY MOUTH 3 TIMES EVERY DAY NEEDED 90 tablet 4 Active atorvastatin (Lipitor) 80 MG tabletIndications: Hyperlipidemia, unspecified hyperlipidemia type TAKE 1 TABLET (80 MG) BY MOUTH IN THE MORNING 90 tablet 1 5 Active loratadine (Claritin) 10 MG tablet Take 1 tab orally daily For allergies 30 tablet 2 5 Active amLODIPine (Norvasc) 10 MG tabletIndications: Hypertension, unspecified type TAKE 1 TABLET BY MOUTH EVERY DAY 90 tablet 1 5 Active lisinopril 10 MG tabletIndications: Hypertension, unspecified type TAKE 1 TABLET BY MOUTH EVERY DAY 90 tablet 5 Active mirtazapine (Remeron) 15 MG tablet TAKE 1 TABLET BY MOUTH EVERYDAY AT BEDTIME 30 tablet 1 5 Active Active Problems Problem Noted Date Diagnosed Date Primary hypertension 04/12/2025 Anxiety 02/18/2013 Depressive disorder 02/18/2013 Hyperlipidemia 02/18/2013 Encounters Date Type Department Care Team Description 06/28/2025 9:00 AM EDT Office Visit [facility] [address] [place] [address] Siria Biswas MD Seborrheic keratosis (Primary Dx) 06/28/2025 Travel 06/24/2025 Refill [facility] [address] [place] [address] Rocio Marie MD Hyperlipidemia, unspecified hyperlipidemia type 06/17/2025 Refill [facility] [address] [place] [address] Lisy Balderrama MD 05/23/2025 Refill [facility] [address] [place] [address] Rocio Marie MD Hypertension, unspecified type 05/19/2025 Orders Only GENERIC EXTERNAL DATA DEPARTMENT Provider, Generic External Data 05/19/2025 Refill [facility] [address] [place] [address] Lisy Balderrama MD 05/18/2025 Refill [facility] [address] [place] [address] Lisy Balderrama MD Hypertension, unspecified type from Last 3 Months Immunizations Immunization Administration Dates Next Due Influenza High-dose Quadriva lent Preservative Free 07/06/2021 Influenza injectable quadriv alent IIV4 with preservative 07/09/2017,09/05/2016,02/14/2016 Influenza injectable quadriv alent preservative free 06/15/2020 Influenza, IIV3, injectable 09/30/2014 Influenza, Split (incl. tri fied surface antigen) 08/30/2013,08/05/2012 Moderna Covid-19 Vaccine 12+ 04/20/2021,03/23/20 Pneumococcal Conjugate PCV 13 01/14/2019 Tdap 01/14/2019 Zoster, live 12/29/2019,11/30/2014 Social History Tobacco Use Types Packs/Day Years Used Date Smoking Tobacco: Never Smokeless Tobacco: Never Tobacco Cessation:Counseling Given: No Alcohol Use Standard Drinks/Week Comments Never 0 [...] Orientation Straight 09/09/2022 10 :17 AM EDT Last Filed Vital Signs Vital Sign Reading Time Taken Comments Blood Pressure 147/68 06/28/2025 9:02 AM EDT Pulse 68 06/28/2025 9:02 AM EDT Temperature 36.8 C (98.3 F) 06/28/2025 9:02 AM EDT Respiratory Rate 20 06/28/2025 9:02 AM EDT Oxygen Saturation 97% 06/28/2025 9:02 AM EDT Inhaled Oxygen Concentration - - Weight 110 kg (243 lb) 06/28/2025 9:02 AM EDT Height 177.8 cm (5' 10 ) 06/28/2025 9:02 AM EDT Body Mass Index 34.87 06/28/2025 9:02 AM EDT Plan of Treatment Upcoming Encounters Date Type Department Care Team ([facility] st Contact Info) Description 08/30/2025 9:15 AM EDT Office Visit [facility] [address] [place] [address] Siria Biswas MD [address] [place] [address] Health Maintenance Due Date Last Done Comments CT Colonography 1952 Colonoscopy 1952 Colorectal Cancer Screening 1952 FIT DNA/Cologuard 1952 FIT 1952 FOBT 1952 Sigmoidoscopy 1952 Zoster Vaccines (3 of 3) 04/08/2020 042 020, 12/29/2019, 11/30/2014 COVID-19 Vaccine ( season) 2025 06/19/2022, 04/20/2021, 03/23/2021 Influenza Vaccine (#1) 2025 4, 08/16/2022, 07/06/2021, Additional history exists Tobacco Screening 03/30/2026 03/30/2025 Alcohol/Substance Use Screening 04/12/2026 04/12/2025 Depression Screening 04/12/2026 04/12/2025, 04/12/20 SDOH Screening 04/12/2026 04/12/2025 RSV Patients and Patients Aged 60 years or older (1 - 1-dose 75+ series) 2027 Lipid Panel 04/18/2030 04/18/2025, 08/0 03/2024, 09/17/2021, Additional history exists DTaP/Tdap/Td Vaccines (3 - Td or Tdap) 07/24/2031 07/24/2021, 01/14/2019 Pneumococcal Vaccine: 50+ Years Completed 04/08/2019, 01/14/2019 Hepatitis C Screening Completed 03/07/2022 HIB Vaccines Aged Out No longer eligi ble based on patient's age to complete this topic HPV Vaccines Aged Out No longer eligi ble based on patient's age to complete this topic Hepatitis A Vaccines Aged Out No long er eligible based on patient's age to complete this topic Hepatitis B Vaccines Aged Out No long er eligible based on patient's age to complete this topic IPV Vaccines Aged Out No longer eligi ble based on patient's age to complete this topic Meningococcal B Vaccine Aged Out No l onger eligible based on patient's age to complete this topic Meningococcal Vaccine Aged Out No sujey javon eligible based on patient's age to complete this topic RSV under 20 months Aged Out No longe r eligible based on patient's age to complete this topic Rotavirus Vaccines Aged Out No longer eligible based on patient's age to complete this topic Procedures Procedure Name Priority Date/Time Associated Diagnosis Comments DESTRUCTION OF LESION Routine 06/29/2025 9:41 PM EDT Seborrheic keratosis URINALYSIS, COMPLETE Routine 05/19/2025 6:28 AM EDT PROTEIN CREATININE RATIO, URINE Routine 05/19/2025 6:28 AM EDT ALBUMIN, RANDOM URINE W/CREATININE Routine 05/19/2025 6:28 AM EDT CALCIUM Routine 05/19/2025 6:28 AM EDT CREATININE, SERUM Routine 05/19/2025 6:2 8 AM EDT UREA NITROGEN (BUN) Routine 05/19/2025 6 :28 AM EDT ELECTROLYTE PANEL Routine 05/19/2025 6:2 8 AM EDT LIPID PANEL, STANDARD Routine 04/18/2025 6:18 AM EDT Primary hypertension ZZZ HISTORICAL HEPATITIS B SURFACE ANTIBODY Routine 03/07/2022 8:42 AM EDT from Last 3 Months or Most Recently Relevant to Health Maintenance Results * Destruction of lesion (06/29/2025 9:41 PM EDT) Siria Loera MD - 06/29/2025 9:41 PM EDT Siria Biswas MD 06/29/2025 9:43 PM Destruction of lesion Date/Time: 06/29/2025 9:41 PM Performed by: Siria Biswas MD Authorized by: Siria Biswas MD Consent: Consent obtained: Verbal and written Risks discussed: Infection, pain and poor cosmetic result Alternatives discussed: Observation Alpha protocol: Procedure explained and questions answered to patient or proxy's satisfaction: yes Relevant documents present and verified: no Test results available: no Imaging studies available: no Required blood products, implants, devices, and special equipment available: no Site/side marked: no Immediately prior to procedure, a time out was called: yes Patient identity confirmed: Verbally with patient Number of Lesions: 1 Lesion 1: Initial size (mm): 15 Final defect size (mm): 15 Malignancy: benign lesion Destruction method: cryotherapy Comments: The procedure was well tolerated. us Siria Biswas MD DERM PROCEDURE ORDERABLES F inal Result * Protein Creatinine Ratio, Urine (05/19/2025 6:28 AM EDT) Protein, Total, Random Urine <7 <12 mg/dL [facility] Protein/Creatin ine Ratio, Ur TNP <0.2 [facility] Comment:Unable to calculate urine protein creatinine ratio due tolow creatinine or protein result. 05/19/2025 6:28 AM EDT 05/19/2025 10:51 AM EDT Generic External Data Provider LAB URINE ORDERAB LES Final Result Performing Organization Address City/[facility]/ZIP Co de Phone Number [facility] [address] [place] [phone] * Creatinine, Serum (05/19/2025 6:28 AM EDT) Creatinine, Serum 1.28 0.5 - 1.4 mg/dL [facility] Estimated Glomerular Filt Rate 55 [facility] Comment:Chronic Kidney Disea se: Estimated GFR < 60 mL/min/1.98c0Hdhskw Kidney Disease: Estimated GFR < 15 mL/min/1.73m2 05/19/2025 6:28 AM EDT 05/19/2025 10:23 AM EDT Generic External Data Provider LAB BLOOD ORDERAB LES Final Result Performing Organization Address City/[facility]/ZIP Co de Phone Number [facility] [address] [place] [address] [phone] * Albumin, Random Urine W/Creatinine (05/19/2025 6:28 AM EDT) Creatinine, Urine 116.75 mg/dL [facility] Microalbumin Urine <5.0 mg/L [facility] Microalbum Creatinine Ratio Ur TNP <30 ug/mg cr [facility] Comment:Unable to calculate albumin/creatinine ratio due to lowmicroalbumin or creatinine result. 05/19/2025 6:28 AM EDT 05/19/2025 10:51 AM EDT us Generic External Data Provider LAB URINE ORDERAB LES Final Result Performing Organization Address [facility] de Phone Number [facility] [address] [place] [address] [phone] * Urinalysis Complete (05/19/2025 6:28 AM EDT) Color Urine Yellow [facility] Appearance Urine Clear [facility] PH 7.5 5.0 - 9.0 [facility] Glucose Urine UA Negative Negative mg/dL [facility] Urine Blood Negative Negative [facility] Specific [place] - Urine 1.015 1.005 - 1.025 [facility] Urine Protein Negative Neg-Trace mg/dL [facility] Urine Ketones Negative Negative mg/dL [facility] Nitrite Urine Negative Negative [facility] Leukocyte Esterase Urine Negative Negative [facility] RBC Urine 0-2 0 - 2 /HPF [facility] Urine WBC 0-5 0 - 5 /HPF [facility] Urine Squamous Epithelial Cell 0-2 0 - 2 /HPF [facility] Urine Bacteria None Seen None Seen [facility] Hyaline Casts, Urine 0-2 0 - 2 /LPF [facility] 05/19/2025 6:28 AM EDT 05/19/2025 10:51 AM EDT us Generic External Data Provider LAB URINE ORDERAB LES Final Result Performing Organization Address [facility] Co de Phone Number [facility] [address] [place] [address] [phone] * BUN (Blood Urea Nitrogen) (05/19/2025 6:28 AM EDT) Urea Nitrogen (BUN) 15 9 - 16 mg/dL [facility] 05/19/2025 6:28 AM EDT 05/19/2025 10:23 AM EDT Generic External Data Provider LAB BLOOD ORDERAB LES Final Result Performing Organization Address [facility]/ZIP Co de Phone Number [facility] [address] [place] [phone] * Calcium (05/19/2025 6:28 AM EDT) Pathologist [facility] Calcium 9.4 8.4 - 10.2 mg/dL [facility] 05/19/2025 6:28 AM EDT 05/19/2025 10:23 AM EDT Generic External Data Provider LAB BLOOD ORDERAB LES Final Result Performing Organization Address [facility] Phone Number [facility] [address] [place] [address] [phone] * Electrolyte Panel (05/19/2025 6:28 AM EDT) Pathologist [facility] Sodium 135 135 - 145 mmol/L [facility] Potassium 4.6 3.3 - 5.1 mmol/L [facility] Comment:Slight Hemolysis.Int erpret result with caution. Chloride 104 96 - 108 mmol/L [facility] Carbon Dioxide 24 22 - 29 mmol/L [facility] Anion Gap 12 12 - 20 [facility] 05/19/2025 6:28 AM EDT 05/19/2025 10:23 AM EDT Generic External Data Provider LAB BLOOD ORDERAB LES Final Result Performing Organization Address [facility] Co de Phone Number [facility] [address] [place] [address] [phone] * Lipid Panel, Standard (04/18/2025 6:18 AM EDT) Triglycerides 141 <150 mg/dL [facility] Comment:Desirable Triglyceri de: less than 150 mg/dLBorderline High Triglyceride 150-199 mg/dLHigh Triglyceride: 200-499 mg/dLVery High Triglyceride: greater than or equal to 5OO mg/dL Cholesterol 166 <200 mg/dL [facility] Comment:Desirable Cholestero l: less than 200 mg/dLBorderline High Cholesterol: 200-239 mg/dLHigh Cholesterol: greater than 239 mg/dL LDL Cholesterol Calculated 87 <100 mg/dL [facility] Comment:Desirable LDL: less than 100 mg/dLNear Optimal/Above Optimal LDL: 110- 129 mg/dLBorderline High LDL: 130-159 mg/dLHigh LDL: 160-189 mg/dLVery High LDL: greater than or equal to 190 mg/dL HDL Cholesterol 51 >40 mg/dL [facility] Comment:Desirable HDL: great er than 40 mg/dL Note: This HDL assay may give artificially low results in patients with liver disease. Blood Venous blood specimen / Unknown 04/18/2025 6:18 AM EDT 04/18/2025 10:06 AM EDT Rocio Marie MD LAB BLOOD ORDERABLES Final Resul t [facility] [address] [place] [phone] [phone] * HEPATITIS B SURFACE ANTIBODY (03/07/2022 8:42 AM EDT) Hepatitis B Surface Antibody NONREACTIVE Nonreactive [facility] Comment:Nonreactive: < 8.00 mIU/mL Hepatitis B Core Antibody Nonreactive Nonreactive [facility] Hepatitis C Antibody Nonreactive Nonreactive [facility] Comment: Antibodies to HCV not detected; does not exclude early acute HCV infection. Hepatitis B Surface Antigen Negative Negative [facility] 03/07/2022 8:42 AM EDT Angel Hernadez MD HISTORICAL/NON ORDERABLE LABS Final Result [facility] [address] from Last 3 Months or Most Recently Relevant to Health Maintenance Insurance [place] [address] [place] [phone] [facility] STANDARD Care Teams Scrub Woman Relationship Specialty Start Date End Date Rocio Marie MD [address] [place] [address] PCP - General Family Medicine 10/23/12
--- OUTSIDE RECORDS SUMMARY | 2025-08-02 01:41 | XMS_ITS | Encounter Summary ---
Author Organization [employer] Address [address] [place] [address] [address]t [place] [address] Care Team Providers Care Grid Trimmer Name Role Phone Rocio Marie MD Primary Care Provider [phone] Reason for Visit * Reason Onset Date Comments Med Refill 05/20/2024 Encounter Details Date Type Department Care Team (Late st Contact Info) Description 05/20/2024 Telephone [facility] [address] [place], [place] [phone] Rocio Marie MD [address] [place], [place] [phone] Med Refill Social History Tobacco Use Types Packs/Day Years Used Date Smoking Tobacco: Never Smokeless Tobacco: Never Sex and Gender Information Value Date Recorded Sex Assigned at Male 09/09/2022 10:17 AM EDT Legal Sex Male 10:17 AM EDT Gender Identity Male 09/09/2022 10:17 AM EDT Sexual Orientation Straight 09/09/2022 10 :17 AM EDT documented as of this encounter Miscellaneous Notes * Telephone Encounter - Sonido Jansen - 05/20/2024 4:01 PM EDT TC from pt requesting medication refill. Medications needing refill : clonazePAM (KlonoPIN) 0.5 MG tablet To be sent to: [facility] documented in this encounter Plan of Treatment Upcoming Encounters Date Type Department Care Team (Late st Contact Info) Description 08/30/2025 9:15 AM EDT Office Visit [facility] [address] [place] [address] Siria Biswas MD [address] [place] [phone] documented as of this encounter Visit Diagnoses Not on filedocumented in this encounter Care Teams Grid Trimmer Relationship Specialty Start Date End Date Rocio Marie MD [address] [place] [phone] PCP - General Family Medicine 10/23/12 documented as of this encounter
--- OUTSIDE RECORDS SUMMARY | 2025-08-02 01:42 | XMS_ITS | Encounter Summary ---
Author Organization [employer] Address [address] [facility] 7 [place] [address] Care Team Providers Care Stratigrapher Name Role Phone Rocio Marie MD Primary Care Provider [phone] Encounter Details Date Type Department Care Team (Late st Contact Info) Description 04/16/2023 [facility] [address] [place], [place] [phone] Rocio Marie MD [address] [place], [place] [phone] Social History Tobacco Use Types Packs/Day Years Used Date Smoking Tobacco: Never Assessed Sex and Gender Information Value Date Recorded Sex Assigned at Male 09/09/2022 10:17 AM EDT Legal Sex Male 10:17 AM EDT Gender Identity Male 09/09/2022 10:17 AM EDT Sexual Orientation Straight 09/09/2022 10 :17 AM EDT COVID-19 Exposure Response Date Recorded In the last 10 days, have yo u been in contact with someone who was confirmed or suspected to have Coronavirus/COVID-19? No / Unsure 03/25/2023 8:57 AM EDT documented as of this encounter Plan of Treatment Upcoming Encounters Date Type Department Care Team (Late st Contact Info) Description 08/30/2025 9:15 AM EDT Office Visit [facility] [address] [place], [place] [phone] Siria Biswas MD [address] [place], [place] [phone] documented as of this encounter Visit Diagnoses Not on filedocumented in this encounter Care Teams Stratigrapher Relationship Specialty Start Date End Date Rocio Marie MD [address] [place] [phone] PCP - General Family Medicine 10/23/12 documented as of this encounter
--- OUTSIDE RECORDS SUMMARY | 2025-08-02 01:42 | XMS_ITS | Encounter Summary ---
Author Organization [employer] Address [address] [facility] 7t [place] [address] Care Team Providers Care Clamper Name Role Phone Rocio Marie MD Primary Care Provider [phone] Reason for Visit * Reason Onset Date Comments Nurse Triage 01/16/2024 Encounter Details Date Type Department Care Team ([facility] st Contact Info) Description 01/16/2024 Telephone [facility] [address] [place] [address] Rocio Marie MD [address] [place], [place] [phone] Nurse Triage Social History Tobacco Use Types Packs/Day Years Used Date Smoking Tobacco: Never Smokeless Tobacco: Never Sex and Gender Information Value Date Recorded Sex Assigned at Male 09/09/2022 10:17 AM EDT Legal Sex Male 10:17 AM EDT Gender Identity Male 09/09/2022 10:17 AM EDT Sexual Orientation Straight 09/09/2022 10 :17 AM EDT documented as of this encounter Miscellaneous Notes * Telephone Encounter - Rocio Marie MD - 01/19/2024 9:36 AM EDT Benzo refill request should be tasked to [facility] * Telephone Encounter - Kori Tran RN - 01/16/2024 3:56 PM EST TC placed to patient to follow up on previous messages. Patient states that the diarrhea he was experiencing with covid seems to be resolving now (no episodes today). He was seen by EMS in his home last night and was told his SP02 was good and so was his BP. He feels fairly energetic and is doing plenty of activity around the house. He denies SOB, fever, or other symptoms. He took two doses of paxlovid and stopped. He is using klonopin as prescribed for anxiety, and it is really helping him. Hewill run out soon and wants to know if PCP will refill this script. Patient will call us on Friday for an appointment if covid symptoms persist/worsen. Routing message to PCP for review of request for refill of klonopin. * Telephone Encounter - Eagle Ramirez - 01/16/2024 12:12 PM EST Tc from pt requesting an appt with PCP. Please see previous notes. Please contact at [phone] * Telephone Encounter - Shayna Ryan RN - 01/16/2024 8:05 AM EST Call to Ryan Zafar , reports calling EMS last night. Per pt was advised to stop Paxlovid andto take dose of clonazepam. Per pt was having dry mouth and diarrhea when taking paxlovid. Only took 2 doses. Pt feeling better today. NO further episodes of diarrhea. No vomiting or fever. Pt deniesany anxiety today. Pt states will stop paxlovid but jut wants to let PCP know. Sent to PCP and team to follow up PRN. Protocol Used: Medication Question Call (Adult) Protocol-Based Disposition: Callback or Video Visit by PCP Today Video visit offer not recorded Positive Triage Question: * Caller has NON-URGENT medicine question about med that PCP or specialist prescribed and triager unable to answer question * All higher-acuity triage questions were negative * Telephone Encounter - Samreen Coker - 01/16/2024 8:02 AM EST Symptoms: Anxiety or Panic Attack, Medication Reaction Outcome: Schedule an urgent appointment (within 1 hour) or talk to a nurse or provider soon Reason: Caller denied all higher acuity questions The caller accepted this outcome documented in this encounter Plan of Treatment Upcoming Encounters Date Type Department Care Team (Late st Contact Info) Description 08/30/2025 9:15 AM EDT Office Visit [facility] MED & PEDS [address] [place], [place] [phone] Siria Biswas MD [address] [place], [place] [phone] documented as of this encounter Visit Diagnoses Not on filedocumented in this encounter Care Teams Clamper Relationship Specialty Start Date End Date Rocio Marie MD [address] [place] [phone] PCP - General Family Medicine 10/23/12 documented as of this encounter
--- OUTSIDE RECORDS SUMMARY | 2025-08-02 01:42 | XMS_ITS | Encounter Summary ---
Author Organization [employer] Address [address] [facility] 7t [place] [address] Care Team Providers Care Industrial Security Analyst Name Role Phone Rocio Marie MD Primary Care Provider [phone] Reason for Visit * Reason Comments Med Refill Encounter Details Date Type Department Care Team ([facility] st Contact Info) Description 06/24/2025 Refill [facility] [address] [facility] [place], [place] [phone] Rocio Marie MD [address] [place], [place] [phone] Hyperlipidemia, unspecified hyperlipidemia type Social History Tobacco Use Types Packs/Day Years [...] Description 08/30/2025 9:15 AM EDT Office Visit [facility] MED & PEDS [address] [place] [address] Siria Biswas MD [address] [place] [address] documented as of this encounter Visit Diagnoses Diagnosis Hyperlipidemia, unspecified hyperlipidemia type documented in this encounter Additional Health Concerns Assessment Noted Time PHQ-9 Depression Total Score: 2 04/12/20 25 9:00 AM EDT documented as of this encounter Care Teams Industrial Security Analyst Relationship Specialty Start Date End Date Rocio Marie MD [address] [place] [phone] PCP - General Family Medicine 10/23/12 documented as of this encounter
--- OUTSIDE RECORDS SUMMARY | 2025-08-02 01:42 | XMS_ITS | Encounter Summary ---
Author Organization [employer] Address [address] 7t [place] [address] Care Team Providers Care Area Loss Prevention Manager Name Role Phone Rocio Marie MD Primary Care Provider [phone] Reason for Visit * Reason Comments Med Change Request Encounter Details Date Type Department Care Team (Late st Contact Info) Description 10/30/2024 Refill [facility] [address] [place] [address] Rocio Marie MD [address] [place], [place] [phone] Social History Tobacco Use Types Packs/Day Years [...] your housing situation today? I have zahira aidan 06/11/[address] you li [...] Answer Date Recorded Internet Access Q1 No 07/12/2024 Internet Access Q2 I do not want or need it 12/2023 Sex and Gender Information Value Date Recorded Sex Assigned at Male 09/09/2022 10:17 AM EDT Legal Sex Male 10:17 AM EDT Gender Identity Male 09/09/2022 10:17 AM EDT Sexual Orientation Straight 09/09/2022 10 :17 AM EDT documented as of this encounter Plan of Treatment Upcoming Encounters Date Type Department Care Team (Late st Contact Info) Description 08/30/2025 9:15 AM EDT Office Visit [facility] [address] [place] [address] Siria Biswas MD 505 [place] [address] documented as of this encounter Visit Diagnoses Not on filedocumented in this encounter Additional Health Concerns Assessment Noted Time PHQ-9 Depression Total Score: 0 06/11/20 24 10:49 AM EDT documented as of this encounter Care Teams Area Loss Prevention Manager Relationship Specialty Start Date End Date Rocio Marie MD [address] [place] [address] PCP - General Family Medicine 10/23/12 documented as of this encounter
--- OUTSIDE RECORDS SUMMARY | 2025-08-02 01:42 | XMS_ITS | Encounter Summary ---
Author Organization [employer] Address [address] [place] [address] 7 [place] [address] Care Team Providers Care Soaking Tank Worker Name Role Phone Rocio Marie MD Primary Care Provider [phone] Reason for Visit * Reason Onset Date Comments Med Refill 12/25/2023 Encounter Details Date Type Department Care Team (Late st Contact Info) Description 12/25/[address] [facility] MED[facility]INE [address] [place], [place] [phone] Rocio Marie MD 505 [facility] [place] [id number] Med Refill Social History Tobacco Use Types Packs/Day Years Used Date Smoking Tobacco: Never Assessed Sex and Gender Information Value Date Recorded Sex Assigned at Male 09/09/2022 10:17 AM EDT Legal Sex Male 10:17 AM EDT Gender Identity Male 09/09/2022 10:17 AM EDT Sexual Orientation Straight 09/09/2022 10 :17 AM EDT documented as of this encounter Miscellaneous Notes * Telephone Encounter - Andrea Feldman - 12/25/2023 8:33 AM EST TC from pt requesting medication refill. Medications needing refill : clonazePAM (KlonoPIN) 0.5 MG tablet To be sent to: [facility]ARMACY #[id number] - [place] - [address] [facility] documented in this encounter Plan of Treatment Upcoming Encounters Date Type Department Care Team (Late st Contact Info) Description 08/30/2025 9:15 [address] EDT Office [address] [facility]EDS 505 [facility] [place] [address] Siria Biswas MD [address] [place] [address] documented as of this encounter Visit Diagnoses Not on filedocumented in this encounter Care Teams Soaking Tank Worker Relationship Specialty Start Date End Date Rocio Marie MD [address] [place] [address] PCP - General Family Medicine 10/23/12 documented as of this encounter
--- OUTSIDE RECORDS SUMMARY | 2025-08-02 01:42 | XMS_ITS | Encounter Summary ---
Author Organization [employer] Address [address] [place] [address] 7t [place] [address] Care Team Providers Care Ship Engines Operating Engineer Name Role Phone Rocio Marie MD Primary Care Provider [phone] Reason for Visit * Reason Onset Date Comments Med Refill 01/22/2024 Encounter Details Date Type Department Care Team (Late st Contact Info) Description 01/22/2024 Telephone [facility] MEDICINE 230 [place], [place] [phone] Rocio Marie MD 505 [facility] [place] [id number] Med Refill Social History Tobacco Use Types [...] encounter Miscellaneous Notes * Telephone Encounter - Samreen Coker - 01/22/2024 10:02 AM EDT TC from pt requesting medication refill. Medications needing refill : clonazePAM (KlonoPIN) 0.5 MG tablet To be sent to: [facility]/pharmacy #[id number] - [place]ER [place] - [address] [facility] documented in this encounter Plan of Treatment Upcoming Encounters Date Type Department Care Team (Late st Contact Info) Description 08/30/2025 9:15 AM EDT Office Visit [facility]EDS 505 [facility] [place] [phone] Siria Biswas MD [address] [place] [address] documented as of this encounter Visit Diagnoses Not on filedocumented in this encounter Care Teams Ship Engines Operating Engineer Relationship Specialty Start Date End Date Rocio Marie MD [address] [place] [address] PCP - General Family Medicine 10/23/12 documented as of this encounter
--- OUTSIDE RECORDS SUMMARY | 2025-08-02 01:42 | XMS_ITS | Encounter Summary ---
Author Organization [employer] Address [address] [place] [address] Care Team Providers Care Assistant Engineer Name Role Phone Rocio Marei MD Primary Care Provider [phone] Reason for Visit * Reason Comments Med Refill Encounter Details Date Type Department Care Team (Late st Contact Info) Description 04/28/2023 Refill [facility] 230 [place] [address] Rocio Marie MD 505 [place] [address] Hypertension, unspecified type; Anxiety Social History Tobacco Use Types Packs/Day Years [...] [facility] 505 [place] [address] Siria Biswas MD 505 [place] [address] documented as of this encounter Visit Diagnoses Diagnosis Hypertension, unspecified type Anxiety Anxiety state, unspecified documented in this encounter Care Teams Assistant Engineer Relationship Specialty Start Date End Date Rocio Marie MD 230 [place] [address] PCP - General Family Medicine 10/23/12 documented as of this encounter
--- OUTSIDE RECORDS SUMMARY | 2025-08-02 01:42 | XMS_ITS | Encounter Summary ---
Author Organization [employer] Address [address] [place] [address] Care Team Providers Care Spring Intern Name Role Phone Rocio Marie MD Primary Care Provider [phone] Reason for Visit * Reason Onset Date Comments Med Refill 09/23/2023 Encounter Details Date Type Department Care Team (Late st Contact Info) Description 09/23/2023 Telephone [facility] MEDICINE 230 [place], [place] [phone] Rocio Marie MD 505 [place], [place] [phone] Med Refill Social History Tobacco Use Types [...] * Telephone Encounter - Andrea Feldman - 09/23/2023 8:19 AM EST Tc from patient requesting medication refill for clonazePAM (KlonoPIN) 0.5 MG tablet. documented in this encounter Plan of Treatment Upcoming Encounters Date Type Department Care Team (Late st Contact Info) Description 08/30/2025 9:15 AM EDT Office Visit [facility]S 505 [place], [place] [phone] Siria Biswas MD 505 [place], [place] [phone] documented as of this encounter Visit Diagnoses Not on filedocumented in this encounter Care Teams Spring Intern Relationship Specialty Start Date End Date Rocio Marie MD [address] [place] [address] PCP - General Family Medicine 10/23/12 documented as of this encounter
--- OUTSIDE RECORDS SUMMARY | 2025-08-02 01:42 | XMS_ITS | Encounter Summary ---
Author Organization [employer] Address [address] [place] [address] Care Team Providers Care Supervisor Extrusion Name Role Phone Rocio Marie MD Primary Care Provider [phone] Reason for Visit * Reason Comments Med Refill Encounter Details Date Type Department Care Team (Late Contact Info) Description 08/23/2023 Refill [facility] MED & PEDS 505 [place] [address] Siria Biswas MD 505 [place] [address] Hyperlipidemia, unspecified hyperlipidemia type Social History Tobacco [...] Encounters Date Type Department Care Team (Late Contact Info) Description 08/30/2025 9:15 AM EDT Office Visit [facility] MED [facility] PEDS 505 [place] [address] Siria Biswas MD 505 [place] [address] documented as of this encounter Visit Diagnoses Diagnosis Hyperlipidemia, unspecified hyperlipidemia type documented in this encounter Care Teams Supervisor Extrusion Relationship Specialty Start Date End Date Rocio Marie MD [address] [place] [address] PCP - General Family Medicine 10/23/12 documented as of this encounter
--- OUTSIDE RECORDS SUMMARY | 2025-08-02 01:42 | XMS_ITS | Encounter Summary ---
Author Organization [employer] Address [address] [facility] 7t [place] [address] Care Team Providers Care Supervising Chef Name Role Phone Rocio Marie MD Primary Care Provider [phone] Reason for Visit * Reason Onset Date Comments Med Refill 07/26/2024 Encounter Details Date Type Department Care Team ([facility] st Contact Info) Description 07/26/2024 Telephone [facility] MEDICINE 230 [place] [address] Rocio Marie MD [address] [place], [place] [phone] Med Refill Social History Tobacco Use Types [...] encounter Miscellaneous Notes * Telephone Encounter - Carlos Bull - 07/26/2024 2:01 PM EDT TC from pt requesting medication refill. Medications needing refill: clonazePAM (KlonoPIN) 0.5 MG tablet To be sent to: [facility]/pharmacy #[id number] JENNIFER MOFFETT - [address] [facility] documented in this encounter Plan of Treatment Upcoming Encounters Date Type Department Care Team (Late st Contact Info) Description 08/30/2025 9:15 AM EDT Office Visit [facility]S 505 [place] [address] Siria Biswas MD 505 [place] [address] documented as of this encounter Visit Diagnoses Not on filedocumented in this encounter Additional Health Concerns Assessment Noted Time PHQ-9 Depression Total Score: 0 06/11/20 24 10:49 AM EDT documented as of this encounter Care Teams Supervising Chef Relationship Specialty Start Date End Date Rocio Marie MD [address] [place] [address] PCP - General Family Medicine 10/23/12 documented as of this encounter
--- OUTSIDE RECORDS SUMMARY | 2025-08-02 01:42 | XMS_ITS | Encounter Summary ---
Author Organization [employer] Address [address] [place] [address] Care Team Providers Care Peripatologist Name Role Phone Rocio Marie MD Primary Care Provider [phone] Reason for Visit * Reason Comments Med Refill Encounter Details Date Type Department Care Team (Late st Contact Info) Description 08/23/2023 Refill [facility] MED & PEDS 505 [place] [address] Rocio Marie MD 505 [place] [address] Anxiety; Pain Social History Tobacco Use Types Packs/Day Years [...] Description 08/30/2025 9:15 AM EDT Office Visit [facility] PEDS 505 [place] [address] Siria Biswas MD 505 [place] [address] documented as of this encounter Visit Diagnoses Diagnosis Anxiety Anxiety state, unspecified Pain Generalized pain documented in this encounter Care Teams Peripatologist Relationship Specialty Start Date End Date Rocio Marie MD [address] [place] [address] PCP - General Family Medicine 10/23/12 documented as of this encounter
--- OUTSIDE RECORDS SUMMARY | 2025-08-02 01:42 | XMS_ITS | Clinical Summary ---
Author Organization [facility] Address [address] [place] [address] Care Team Providers Care Sprinkler Fitter Name Role Phone Rocio Marie MD Primary Care Provider [phone] Allergies No known active allergies Medications amLODIPine-ator vastatin (CADUET) 10-10 MG per tablet Take 1 tablet by mouth 1 (one) time each day Active atorvastatin (LIPITOR) 80 MG tablet Take 80 mg by mouth 1 (one) time each day Active Blood Pressure kit Active Calcium-Choleca lciferol (QC Calcium 500mg-D3) 500-200 MG-UNIT tablet Take 500 mg by mouth 2 (two) times a day Active clonazePAM (KlonoPIN) 0.5 MG tablet Take 0.5 mg by mouth in the morning and 0.5 mg in the evening. Active FLUoxetine (PROzac) 20 MG capsule Take 20 mg by mouth 1 (one) time each day Active gabapentin (NEURONTIN) 100 MG capsule Take 100 mg by mouth in the morning and 100 mg in the evening and 100 mg before bedtime. Active hydroCHLOROthia zide (HYDRODIURIL) 50 MG tablet Take 50 mg by mouth 1 (one) time each day Active loperamide (IMODIUM A-D) 2 MG tablet Take 2 mg by mouth 4 (four) times a day if needed for diarrhea Active lisinopril 10 MG tablet Take 10 mg by mouth 1 (one) time each day Active omeprazole (PriLOSEC) [address] capsule Take 20 mg by mouth 1 (one) time each day Do not crush or chew. Active Naloxone HCl 4 MG/0.1ML liquid Administer into affected nostril(s) Active hydrOXYzine (ATARAX) 50 MG tablet 2 Active Active Problems Problem Noted Date Diagnosed Date Chronic kidney disease, stage 2 (mild) 2 Stage 3a chronic kidney disease 01/10/2022 Renal osteodystrophy 01/10/2022 Hypertensive chronic kidney disease 01/10/2022 Anxiety 01/07/2022 Hyperlipidemia 01/07/2022 Depression annual review 01/07/2022 Depressive disorder 02/18/2013 Encounters Date Type Department Care Team Description 05/19/2025 Orders Only [facility] [address] [facility] [address] [place] [address] Angel Hernadez MD from Last 3 Months Immunizations Immunization Administration Dates Next Due Influenza Split 08/30/2013,08/05/2012 Influenza, Quadrivalent, Preservative Free 06/15 Influenza, Quadrivalent, With Preservative 07/09,09/05/2016,02/14/2016 Moderna SARS-COV-2 04/20/2021,03/23/2021 Pneumococcal Conjugate 13-Valent 01/14/2019 Tdap 01/14/2019 Zoster 12/29/2019,11/30/2014 Family History Relation Status Comments Father Mother Social History Tobacco Use Types Packs/Day Years Used Date Smoking Tobacco: Never Assessed Alcohol Use Standard Drinks/Week Comments Never 0 (1 standard drink = 0.6 oz pur e alcohol) Sex and Gender Information Value Date Recorded Sex Assigned at Not on file Legal Sex Male 3:07 PM EST Gender Identity Not on file Sexual Orientation Not on file Last Filed Vital Signs Vital Sign Reading Time Taken Comments Blood Pressure 122/60 05/04/2024 2:17 PM EDT Pulse 64 05/04/2024 2:17 PM EDT Temperature - - Respiratory Rate - - Oxygen Saturation 98% 05/04/2024 2:17 PM EDT Inhaled Oxygen Concentration - - Weight 104 kg (230 lb) 05/04/2024 2:17 PM EDT Height - - Body Mass Index - - Plan of Treatment Health Maintenance Due Date Last Done Comments Colorectal Cancer Screening: Annual FOBT 2001 Colorectal Cancer Screening: Colonoscopy 2001 Colorectal Cancer Screening: Sigmoidoscopy 2001 Pneumococcal Vaccine: 50+ Years (2 of 2 - PPSV23, PCV20, or PCV21) 03/11/2019 01/14/2019 Influenza Vaccine (#1) 2025 0, 07/09/2017, 09/05/2016, Additional history exists Hepatitis B Vaccine Aged Out No longe r eligible based on patient's age to complete this topic Procedures Procedure Name Priority Date/Time Associated Diagnosis Comments URINALYSIS WITH MICROSCOPIC Routine 05/19/2025 10:51 AM EDT PROTEIN / CREATININE RATIO, URINE Routine 05/19/2025 10:51 AM EDT ALBUMIN, URINE, RANDOM Routine 05/19/2025 10:51 AM EDT CALCIUM Routine 05/19/2025 10:23 AM EDT CREATININE, BLOOD Routine 05/19/2025 10: 23 AM EDT BUN Routine 05/19/2025 10:23 AM EDT ELECTROLYTE PANEL Routine 05/19/2025 10: 23 AM EDT from Last 3 Months Results * Protein, Total, Random Urine w/Creatinine (Protein/Creat Ratio) (05/19/2025 10:51 AM EDT) Protein Urine Random <7 <12 mg/dL See order comments Protein/Creatin ine Ratio, Urine TNP <0.2 See order comments Comment: Unable to calculate urine protein creatinine ratio due to low creatinine or protein result. 05/19/2025 10:5 1 AM EDT 05/19/2025 10:51 AM EDT us Angel Hernadez MD LAB URINE ORDERABLES Final Re sult [place] See order comments [place] [address] * Albumin, urine, random (05/19/2025 10:51 AM EDT) Creatinine, Urine 116.75 mg/dL Se e order comments Urine Microalbumin <5.0 mg/L See order comments Microalbumin/Crea tinine Ratio TNP <30 ug/mg cr See order comments Comment: Unable to calculate albumin/creatinine ratio due to low microalbumin or creatinine result. 05/19/2025 10:5 1 AM EDT 05/19/2025 10:51 AM EDT Angel Hernadez MD LAB URINE ORDERABLES Final Re sult Performing Organization Address [facility] de Phone Number [place] See order comments [place] [address] * Urinalysis with microscopic (05/19/2025 10:51 AM EDT) Color Urine Yellow See orde r comments Appearance Urine Clear See order comments pH Urine 7.5 5.0 - 9.0 See order comments Glucose Urine Negative Negative mg/dL See order comments Blood, Urine Negative Negative See ord er comments Specific [place] Urine 1.015 1.005 - 1.025 See order comments Protein Urine Negative Neg-Trace mg/dL See order comments Ketones, Urine Negative Negative mg/dL See order comments Nitrite, Urine Negative Negative See o rder comments Leukocyte Esterase Urine Negative Negative See order comments RBC, Urine 0-2 0 - 2 /HPF See orde r comments WBC 0-5 0 - 5 /HPF See order comments Squamous Epithelial, Urine 0-2 0 - 2 /HPF See order comments Bacteria, Urine None Seen None Seen See order comments Hyaline Casts, Urine 0-2 0 - 2 /LPF See order comments 05/19/2025 10:5 1 AM EDT 05/19/2025 10:51 AM EDT Angel Hernadez MD LAB URINE ORDERABLES Final Re sult Performing Organization Address [facility] Co de Phone Number [place] See order comments [place] [address] * Creatinine (05/19/2025 10:23 AM EDT) Creatinine Serum 1.28 0.5 - 1.4 mg/dL See order comments eGFR (Calc) 55 See orde r comments Comment: Chronic Kidney Disease: Estimated GFR < 60 mL/min/1.73m2 Severe Kidney Disease: Estimated GFR < 15 mL/min/1.73m2 05/19/2025 10:2 3 AM EDT 05/19/2025 10:23 AM EDT us Angel Hernadez MD LAB BLOOD ORDERABLES Final Re sult Performing Organization Address [facility] Phone Number [place] See order comments [place] [address] * BUN (05/19/2025 10:23 AM EDT) BUN 15 9 - 16 mg/dL See order comments 05/19/2025 10:2 3 AM EDT 05/19/2025 10:23 AM EDT us Angel Hernadez MD LAB BLOOD ORDERABLES Final Re sult Performing Organization Address [facility] Phone Number [place] See order comments [place] [address] * Calcium (05/19/2025 10:23 AM EDT) Calcium 9.4 8.4 - 10.2 mg/dL See order comments 05/19/2025 10:2 3 AM EDT 05/19/2025 10:23 AM EDT us Angel Hernadez MD LAB BLOOD ORDERABLES Final Re sult Performing Organization Address [facility] Phone Number [place] See order comments [place] [address] * Electrolyte panel (05/19/2025 10:23 AM EDT) Sodium 135 135 - 145 mmol/L See order comments Potassium 4.6 3.3 - 5.1 mmol/L See order comments Comment:Slight Hemolysis.Int erpret result with caution. Chloride 104 96 - 108 mmol/L See order comments Bicarbonate (CO2) 24 22 - 29 mmol/L See order comments Anion Gap 12 12 - 20 See order comments 05/19/2025 10:2 3 AM EDT 05/19/2025 10:23 AM EDT us Angel Hernadez MD LAB BLOOD ORDERABLES Final Re sult [place] See order comments [place] [address] from Last 3 Months Insurance Medicare [place] Care Teams Sprinkler Fitter Relationship Specialty Start Date End Date Rocio Marie MD PCP - General Family Medicine 10/29/21
[2025-08-02 01:50] VITALS: BP 153/60; PULSE 70; RESP 16; TEMP 36.5; O2SAT 95
[2025-08-02 01:58] VITALS: BP 153/60; PULSE 70; RESP 16; TEMP 36.5; O2SAT 95
== END 2025-08-02 02:00 | disposition home or self-care (01) ==
PROVIDERS: Emergency Provider Emergency Medicine; PCP Student in an Organized Health Care Education/Training Program
DX: R21 Rash and other nonspecific skin eruption (principal)
CPT/HCPCS: 99283; 99284